=== PATIENT | male | born 1940 | race Caucasian/White ===

== ENCOUNTER 2017-11-13 02:49 | Day surgery (SDC) | payer OTHER ==
[~2017-11-13] VITALS: Ht 190.5 cm; Wt 120.0 kg
[~2017-11-13 02:49] MED LIST: ALBU90OI INH; AMIO200 PO; AMLO5 PO; ASPI325 PO; ASPI81EC; ASPI81EC PO; ATEN100; ATEN25 PO; ATOR10; Aldactone25 MG PO; Amiodarone HCl200 MG PO; Aspirin EC81 MG PO; BISA10S PR; CEFD300 PO; CEPH500 PO; CHOL10002 PO; CIPR500 PO; CLON.1 PO; CLOP75 PO; CO Q10 100 MG; CYAN1000 PO; CYANOCOBALAMIN 1000 MG; DIGO.25; DOCU100 PO; ESOM20 PO; EXTRA STRENGTH500 MG PO; FEXO180 PO; FISH1000; FURO20 PO; FURO40 PO; GLIM4 PO; GLUC500; GLYMET2.5; GLYMET5 PO; HYDACE5 PO; HYDACE5325 PO; HYDACE7.5 PO; HYDCHL25 PO; HYOS.125 SL; Heparin 5,5000 U/0.5 SC; INS70/30PN SC; IRBE150; IRBE150 PO; IRBE75 PO; ISOMON20 PO; L-THYROXINE PO; LASIX PO; LEVSOD100 PO; LEVSOD150 PO; LOPE2C PO; Lasix40 MG PO; METF500 PO; METO10 PO; METO25 PO; METO50 PO; NAPR500 PO; OXYC5; POLY17UD PO; POTA10T PO; POTCHL10ER PO; POTCIT10 PO; PROM25 PO; RANI150; RXHYD5325 PO; SIMV10 PO; SPIR25 PO; SULTRIDS PO; TAMS.4ER PO; TRAM50 PO; TRIHYD253A; TRIHYD253A PO; TRIHYD253B PO; VITAMIN B122500 MC1 PO; XARELTO20 MG PO
[2017-11-13] MEDS ORDERED: XARELTO20 MG PO (06:41)
== END 2017-11-13 08:20 | disposition home or self-care (01) ==
LOC: MHTC 02:49
PROC: 5A2204Z Restoration of Cardiac Rhythm, Single (ICD-10-PCS; principal; 2017-11-13)
PROC: B246ZZ4 Ultrasonography of Right and Left Heart, Transesophageal (ICD-10-PCS; principal; 2017-11-13)
DX: I48.1 Persistent atrial fibrillation (principal); I48.0 Paroxysmal atrial fibrillation; I11.0 Hypertensive heart disease with heart failure; E11.9 Type 2 diabetes mellitus without complications; E78.00 Pure hypercholesterolemia, unspecified; Z79.01 Long term (current) use of anticoagulants; I50.9 Heart failure, unspecified; E78.5 Hyperlipidemia, unspecified
CPT/HCPCS: 92960; 93005; 93010; 93312; 93325; 99152; 99153; J2250; J3010; J7040

== ENCOUNTER 2018-02-22 05:10 | Emergency (ER) | payer OTHER ==
[~2018-02-22] VITALS: Ht 193 cm; Wt 124.7 kg
[2018-02-22] MEDS ORDERED: Augmentin 875-1 EACH PO (06:46)
[2018-02-22] MEDS ORDERED: Norco 5-325 Ta1 EACH PO (06:46)
== END 2018-02-22 06:55 | disposition home or self-care (01) ==
LOC: ER 05:10
DX: J02.9 Acute pharyngitis, unspecified (principal); I11.0 Hypertensive heart disease with heart failure; I50.9 Heart failure, unspecified; E11.9 Type 2 diabetes mellitus without complications; I25.2 Old myocardial infarction; I48.91 Unspecified atrial fibrillation; Z88.5 Allergy status to narcotic agent; Z88.1 Allergy status to other antibiotic agents; Z79.899 Other long term (current) drug therapy; Z79.84 Long term (current) use of oral hypoglycemic drugs; Z79.82 Long term (current) use of aspirin; Z87.891 Personal history of nicotine dependence
CPT/HCPCS: 70360; 87081; 87430; 99283

== ENCOUNTER → 2018-06-08 | Outpatient (CLI) | payer OTHER ==
[~2018-06-08] MED LIST changes: +Augmentin 875-1 EACH PO; +Norco 5-325 Ta1 EACH PO
[2018-06-09 21:49] LABS: Protein, Urine Quantitative 19.9 mg/dL (0.0-11.9)
== END | disposition home or self-care (01) ==
LOC: LAB SHORT 08:30 → LAB 08:30
PROVIDERS: Internal Medicine Nephrology
DX: N18.3 Chronic kidney disease, stage 3 (moderate) (principal); D63.1 Anemia in chronic kidney disease; D75.1 Secondary polycythemia
CPT/HCPCS: 81050; 82043; 84156

== ENCOUNTER → 2018-06-30 | Outpatient (CLI) | payer OTHER | END | disposition home or self-care (01) | LOC: PLD 13:45 → LAB SHORT 13:45 | DX: D48.5 Neoplasm of uncertain behavior of skin (principal); D72.9 Disorder of white blood cells, unspecified | CPT/HCPCS: 88304 ==

== ENCOUNTER → 2018-10-29 | Outpatient (CLI) | payer OTHER | END | disposition home or self-care (01) | LOC: LAB SHORT 12:12 → PLD 12:12 | DX: L30.9 Dermatitis, unspecified (principal); L98.9 Disorder of the skin and subcutaneous tissue, unspecified | CPT/HCPCS: 88305; 88312 ==

== ENCOUNTER 2020-06-05 18:14 | Observation (INO) | payer OTHER ==
[~2020-06-05] VITALS: Ht 193 cm; Wt 122.4 kg
[~2020-06-05 18:14] MED LIST changes: -ISOMON20 PO; +ISOSORBIDE MONO30 MG PO
[2020-06-05 20:38] LABS: BASOPHILS ABSOLUTE AUTO 0.09 K/mm3 (0.00-0.23); BASOPHILS PERCENT AUTO 1 % (0-2); EOSINOPHILS ABSOLUTE AUTO 0.41 K/mm3 (0.00-0.68); EOSINOPHILS PERCENT AUTO 3 % (0-6); Hematocrit 47.4 % (37.0-53.0); Hemoglobin 15.8 g/dL (13.5-17.5); IMMATURE GRAN ABSOLUTE AUTO 0.07 K/mm3 (0.00-0.10); IMMATURE GRAN PERCENT AUTO 1 % (0-1); LYMPHOCYTES ABSOLUTE AUTO 1.84 K/mm3 (0.84-5.20); LYMPHOCYTES PERCENT AUTO 14 % (21-46); MONOCYTES ABSOLUTE AUTO 1.66 K/mm3 (0.16-1.47); MONOCYTES PERCENT AUTO 13 % (4-13); Mean Corpuscular HGB 30.4 pg (26.0-34.0); Mean Corpuscular HGB Conc 33.3 g/dL (31.5-36.5); Mean Corpuscular Volume 91 fL (80-100); Mean Platelet Volume 10.3 fL (9.1-12.4); NEUTROPHILS ABSOLUTE AUTO 8.92 K/mm3 (1.96-9.15); NEUTROPHILS PERCENT AUTO 69 % (41-73); Platelet Count 183 K/mm3 (150-400); RDW Coefficient Variation 12.3 % (11.7-14.2); RDW Standard Deviation 41.4 fL (35.1-46.3); White Blood Cell Count 12.99 K/mm3 (4.00-11.30)
[2020-06-05 20:54] LABS: International Normalized Ratio 1.03
[2020-06-05 20:59] LABS: Alanine Aminotransfer (ALT/SGP 22 U/L (12-78); Albumin, Blood 3.4 g/dL (3.4-5.0); Alk Phos 85 U/L (50-136); Anion Gap 9 mmol/L (6-16); Aspartate Aminotrans (AST/SGOT 18 U/L (12-37); Bilirubin, Total 0.6 mg/dL (0.1-1.0); Blood Urea Nitrogen 20 mg/dL (8-24); Bun/Creatinine Ratio 15.9 (12.0-20.0); CO2, Blood 27 mmol/L (21-32); Chloride, Blood 103 mmol/L (98-108); Creatinine, Blood 1.26 mg/dL (0.60-1.20); Globulin, Blood 3.5 g/dL (2.2-4.0); Glomerular Filtration Rate 59 (60-); Glucose, Blood 213 mg/dL (70-99); Potassium, Blood 3.5 mmol/L (3.5-5.5); Sodium, Blood 139 mmol/L (136-145); Total Protein, Blood 6.9 g/dL (6.4-8.2); Troponin I <0.015 ng/mL (0.000-0.040)
[2020-06-05] MEDS ORDERED: SITA100T2 PO (21:44)
[2020-06-05] MEDS ORDERED: BUME2 PO (21:50)
[2020-06-05] MEDS ORDERED: GABA100 PO (21:53)
[2020-06-05] MEDS ORDERED: ALLEGRA ALLERG180 MG PO (21:55)
[2020-06-05] MEDS ORDERED: Meribin5 MG PO (21:55)
[2020-06-05] MEDS ORDERED: SPIR25 PO (21:56)
[2020-06-05] MEDS ORDERED: PIOG30 PO (21:57)
[2020-06-05] MEDS ORDERED: Aspir 8181 MG PO (22:01)
--- NOTE | 2020-06-06 07:31 | NUR ---
head gauge unit operator summary pt a/o x4. currently bedrest. swelling and redness in RLE. pt denies pain in leg. he does have some tenderness. he is chronically sob at baseline. i did not notice any sob. lung sounds clear throughout. pt's ble are elevated to help decrease swelling. currently on heparin drip. pt educated on this. vss. report given to oncoming nurse.
--- NOTE | 2020-06-06 07:53 | NUR ---
DNR WRISTBAND PLACED AT 0753 ON 06/06/20. VERIFIED WITH SATISH JONES.
--- NOTE | 2020-06-06 18:49 | NUR ---
PATIENT IS ALERT AND ORIENTED. HE IS ON A HEPARIN DRIP. NO COMPLAINTS OF PAIN IN RIGHT LEG. AWAITING CONSULT WITH DR. WANG. PATIENT IS INDEPENDENT TO THE BATHROOM. HE HAS AGREED TO TAKE ELIQUIS AT HOME.
--- NOTE | 2020-06-07 06:29 | NUR ---
EQUIPMENT OPERATOR/LABORER/SUPERVISOR SUMMARY NO ACUTE CHAGNES THIS SHIFT. PT AAOX4 AND PLEASANT. STANDBY ASSIST TO BSC. DENIES PAIN IN RLE BUT DOES STILL HAVE SOME SWELLING AND REDNESS OF THE AREA. PER PT, AWAITING WORD FROM DR WANG OF THE PLAN MOVING FORWARD REGARDING HIS DVT'S. VSS, WILL CONTINUE TO MONITOR.
--- NOTE | 2020-06-07 17:16 | NUR ---
SHIFT SUMMARY PT A/O X4, PLEASANT, AND COOPERATIVE WITH CARE. SBA TO THE BA. REDNESS AND SWELLING IN R LEG, BUT PT DENIES PAIN. PT ON A HEPARIN DRIP. THROMBECTOMY SCHEDULED FOR TOMORROW MORNING. NPO AFTER MIDNIGHT. VSS, WILL CONTINUE TO MONITOR.
[2020-06-08 03:26] LABS: Bun/Creatinine Ratio 14.2 (12.0-20.0); Calcium, Blood 8.6 mg/dL (8.5-10.1); Creatinine, Blood 1.41 mg/dL (0.60-1.20); Potassium, Blood 3.7 mmol/L (3.5-5.5)
--- NOTE | 2020-06-08 03:46 | NUR ---
HEELER MACHINE SUMMARY Patient anxious about having thrombectomy today. No complaint of pain except dull ache when oob to bathroom. Patient asking questions about activity levels while recovering from surgery. PTT 57.4 at 0300. Per pharmacy, no change in dosing of heparin for now. Rate will remain at 44ml/hr until PTT redrawn at 080o.
--- NOTE | 2020-06-08 07:25 | NUR ---
PT TRANSPORTED TO THE [facility] BY WHEELCHAIR AT 0720 FOR PROCEDURE.
--- NOTE | 2020-06-08 09:00 | NUR ---
Patient arrived from [facility] at 0849, he was alert and oriented and able to communicate his needs. He is on RA and sats >90%. He has clear op site to back of knee from access point that is c/d/i and no current signs of bleeding or hematoma and + pedal pulse. He has distal edema 1-2. Called Dr Cheng and ok to eat and give am meds and talked with Dr Helton and stated the same and he would contact Dr Cheng for coagulation.
--- NOTE | 2020-06-08 09:06 | NUR ---
PT TRANSFERRED TO ICU 16. REPORT GIVEN TO MARIANNA ENG.
[2020-06-08] MEDS ORDERED: ELIQUIS5 MG PO (10:59)
--- NOTE | 2020-06-08 11:24 | NUR ---
Patient seen by Dr Cheng and discharge orders written. Meds called into [facility]. Patient was assisted by aid to get dressed. Dressing to back of right leg C/D/I. He was given written discharge orders and reviewed new med and side affects to watch out for to change med dose. Patient returned understanding and RAC IV pulled intact and was help to front of hospital by wheelchair and went home POV.
== END 2020-06-08 11:20 | disposition home or self-care (01) ==
LOC: ER 18:14 → MEDS 18:15 → ER 22:08 → MEDS 22:08 → ICUW 06-08 08:45
PROVIDERS: Emergency Medicine; Internal Medicine; ADMIT Hospitalist
DX: I82.411 Acute embolism and thrombosis of right femoral vein (principal); I82.431 Acute embolism and thrombosis of right popliteal vein; I82.441 Acute embolism and thrombosis of right tibial vein; I82.4Z1 Acute embolism and thrombosis of unspecified deep veins of right distal lower extremity; I87.2 Venous insufficiency (chronic) (peripheral); I25.10 Atherosclerotic heart disease of native coronary artery without angina pectoris; E78.5 Hyperlipidemia, unspecified; E11.22 Type 2 diabetes mellitus with diabetic chronic kidney disease; E11.40 Type 2 diabetes mellitus with diabetic neuropathy, unspecified; I12.9 Hypertensive chronic kidney disease with stage 1 through stage 4 chronic kidney disease, or unspecified chronic kidney disease; N18.3 Chronic kidney disease, stage 3 (moderate); I48.20 Chronic atrial fibrillation, unspecified; Z87.891 Personal history of nicotine dependence; Z20.828 Contact with and (suspected) exposure to other viral communicable diseases; Z88.5 Allergy status to narcotic agent; Z88.8 Allergy status to other drugs, medicaments and biological substances; Z79.82 Long term (current) use of aspirin; Z79.899 Other long term (current) drug therapy; Z79.84 Long term (current) use of oral hypoglycemic drugs
CPT/HCPCS: 36005; 36010; 36415; 37187; 71260; 75820; 76937; 80048; 80053; 82947; 83880; 84484; 85025; 85610; 85730; 93005; 93010; 93971; 99152; 99153; 99285-25; A9270; A9270-GY; C1757; C1769; C1887; C1894; G0378; J1644; J2250; J3010; J7030; Q9967; U0002

== ENCOUNTER 2020-06-13 11:23 | Emergency (ER) | payer OTHER ==
[~2020-06-13] VITALS: Ht 193 cm; Wt 120.2 kg
[~2020-06-13 11:23] MED LIST changes: +ALLEGRA ALLERG180 MG PO; +Aspir 8181 MG PO; +BUME2 PO; +ELIQUIS5 MG PO; +GABA100 PO; +Meribin5 MG PO; +PIOG30 PO; +SITA100T2 PO
[2020-06-13 12:15] LABS: BASOPHILS PERCENT AUTO 1 % (0-2); EOSINOPHILS ABSOLUTE AUTO 0.32 K/mm3 (0.00-0.68); EOSINOPHILS PERCENT AUTO 3 % (0-6); Hematocrit 47.8 % (37.0-53.0); IMMATURE GRAN ABSOLUTE AUTO 0.08 K/mm3 (0.00-0.10); IMMATURE GRAN PERCENT AUTO 1 % (0-1); LYMPHOCYTES ABSOLUTE AUTO 1.67 K/mm3 (0.84-5.20); LYMPHOCYTES PERCENT AUTO 15 % (21-46); MONOCYTES ABSOLUTE AUTO 1.11 K/mm3 (0.16-1.47); MONOCYTES PERCENT AUTO 10 % (4-13); Mean Corpuscular HGB 30.9 pg (26.0-34.0); Mean Corpuscular HGB Conc 33.5 g/dL (31.5-36.5); Mean Corpuscular Volume 93 fL (80-100); NEUTROPHILS ABSOLUTE AUTO 7.91 K/mm3 (1.96-9.15); NEUTROPHILS PERCENT AUTO 71 % (41-73); Platelet Count 286 K/mm3 (150-400); RDW Coefficient Variation 12.1 % (11.7-14.2); RDW Standard Deviation 41.3 fL (35.1-46.3); Red Blood Cell Count 5.17 M/mm3 (4.30-5.90); White Blood Cell Count 11.19 K/mm3 (4.00-11.30)
[2020-06-13 12:32] LABS: International Normalized Ratio 1.08; Prothrombin Time Results 11.5 Sec (9.7-11.5)
[2020-06-13 12:48] LABS: Albumin, Blood 3.5 g/dL (3.4-5.0); Albumin/Globulin Ratio 0.9 (0.8-1.8); Bilirubin, Total 0.7 mg/dL (0.1-1.0); Bun/Creatinine Ratio 18.1 (12.0-20.0); Calcium, Blood 9.7 mg/dL (8.5-10.1); Creatinine, Blood 1.44 mg/dL (0.60-1.20); Globulin, Blood 4.1 g/dL (2.2-4.0); Potassium, Blood 4.5 mmol/L (3.5-5.5); Total Protein, Blood 7.6 g/dL (6.4-8.2)
== END 2020-06-13 15:28 | disposition home or self-care (01) ==
LOC: ER 11:23
PROVIDERS: Physician Assistant
DX: I82.511 Chronic embolism and thrombosis of right femoral vein (principal); I48.91 Unspecified atrial fibrillation; E78.5 Hyperlipidemia, unspecified; E11.22 Type 2 diabetes mellitus with diabetic chronic kidney disease; N18.9 Chronic kidney disease, unspecified; I25.10 Atherosclerotic heart disease of native coronary artery without angina pectoris; I25.2 Old myocardial infarction; I12.9 Hypertensive chronic kidney disease with stage 1 through stage 4 chronic kidney disease, or unspecified chronic kidney disease; E11.40 Type 2 diabetes mellitus with diabetic neuropathy, unspecified; Z88.5 Allergy status to narcotic agent; Z88.8 Allergy status to other drugs, medicaments and biological substances; Z79.01 Long term (current) use of anticoagulants; Z79.84 Long term (current) use of oral hypoglycemic drugs; Z79.899 Other long term (current) drug therapy; Z79.82 Long term (current) use of aspirin; Z87.891 Personal history of nicotine dependence
CPT/HCPCS: 80053; 85025; 85610; 85730; 93971; 99285-25

== ENCOUNTER 2020-06-23 05:40 | Day surgery (SDC) | payer OTHER ==
[~2020-06-23] VITALS: Ht 193 cm; Wt 120.0 kg
--- NOTE | 2020-06-23 09:06 | NUR ---
PT VERBALIZED UNDERSTANDING OF WRITTEN AND VERBAL D/C INST. IV REMOVED. SR 60BPM ON D/C. PT TAKEN OUT OF THE [facility]RT CENTER VIA W/C.
== END 2020-06-23 22:38 | disposition home or self-care (01) ==
LOC: MHTC 05:40
DX: I48.0 Paroxysmal atrial fibrillation (principal); E78.00 Pure hypercholesterolemia, unspecified; E11.51 Type 2 diabetes mellitus with diabetic peripheral angiopathy without gangrene; I25.10 Atherosclerotic heart disease of native coronary artery without angina pectoris; Z87.891 Personal history of nicotine dependence; I11.0 Hypertensive heart disease with heart failure; I50.32 Chronic diastolic (congestive) heart failure; I87.2 Venous insufficiency (chronic) (peripheral); E78.5 Hyperlipidemia, unspecified; Z79.84 Long term (current) use of oral hypoglycemic drugs; Z79.82 Long term (current) use of aspirin; Z79.899 Other long term (current) drug therapy; Z79.01 Long term (current) use of anticoagulants; I44.0 Atrioventricular block, first degree; E03.9 Hypothyroidism, unspecified; R31.9 Hematuria, unspecified; I70.0 Atherosclerosis of aorta
CPT/HCPCS: 92960; 93005; 93010; 93312; 93325; 99152; J2250; J3010; J7030

== ENCOUNTER 2020-09-01 12:46 | Day surgery (SDC) | payer OTHER ==
[~2020-09-01] VITALS: Ht 193 cm; Wt 121.9 kg
[~2020-09-01 12:46] MED LIST changes: +ALDACTONE25 MG PO; +Actos30 MG PO; +Bumetanide2 MG PO; +ELIQUIS5 M2 PO; +EUTHYROX125 MCG PO; +FAMO20 PO; +FOLI1 PO; +GALZIN50 MG PO; +Isosorbide Mono30 MG PO; +Klor-Con 1010 MEQ PO; +MERIBIN5 M1 PO; +METO25ER PO
== END 2020-09-01 14:59 | disposition home or self-care (01) ==
LOC: ORSCSDS 12:46
PROVIDERS: Surgery
PROC: 0DBH8ZX Excision of Cecum, Via Natural or Artificial Opening Endoscopic, Diagnostic (ICD-10-PCS; principal; 2020-09-01 14:15)
DX: Z12.11 Encounter for screening for malignant neoplasm of colon (principal); D12.0 Benign neoplasm of cecum; K64.8 Other hemorrhoids; I10 Essential (primary) hypertension; I48.0 Paroxysmal atrial fibrillation; I25.10 Atherosclerotic heart disease of native coronary artery without angina pectoris; E11.40 Type 2 diabetes mellitus with diabetic neuropathy, unspecified; E78.5 Hyperlipidemia, unspecified; I25.2 Old myocardial infarction; Z79.01 Long term (current) use of anticoagulants; Z79.82 Long term (current) use of aspirin; Z79.84 Long term (current) use of oral hypoglycemic drugs; Z79.899 Other long term (current) drug therapy; Z87.891 Personal history of nicotine dependence
CPT/HCPCS: 82947; 88305; J2704; J7120

== ENCOUNTER → 2022-04-10 | Outpatient (CLI) | payer OTHER | END | disposition home or self-care (01) | LOC: PLD 14:42 → LAB SHORT 14:42 | DX: D23.39 Other benign neoplasm of skin of other parts of face (principal) | CPT/HCPCS: 88305 ==

== ENCOUNTER → 2022-11-22 | Outpatient (CLI) | payer OTHER | LOC: LAB SHORT 08:14 → PLD 08:14 | DX: C44.319 Basal cell carcinoma of skin of other parts of face (principal) | CPT/HCPCS: 88305 ==

== ENCOUNTER 2023-04-15 09:53 | Emergency (ER) | payer OTHER ==
[~2023-04-15] VITALS: Ht 193 cm; Wt 124.7 kg
[~2023-04-15 09:53] MED LIST changes: +Simvastatin10 MG PO
[2023-04-15 10:54] LABS: BASOPHILS ABSOLUTE AUTO 0.07 K/mm3 (0.00-0.23); BASOPHILS PERCENT AUTO 1 % (0-2); EOSINOPHILS ABSOLUTE AUTO 0.29 K/mm3 (0.00-0.68); EOSINOPHILS PERCENT AUTO 3 % (0-6); Hematocrit 50.3 % (37.0-53.0); Hemoglobin 16.3 g/dL (13.5-17.5); IMMATURE GRAN ABSOLUTE AUTO 0.04 K/mm3 (0.00-0.10); IMMATURE GRAN PERCENT AUTO 0 % (0-1); LYMPHOCYTES ABSOLUTE AUTO 1.19 K/mm3 (0.84-5.20); LYMPHOCYTES PERCENT AUTO 12 % (21-46); MONOCYTES ABSOLUTE AUTO 1.05 K/mm3 (0.16-1.47); MONOCYTES PERCENT AUTO 11 % (4-13); Mean Corpuscular HGB 29.5 pg (26.0-34.0); Mean Corpuscular HGB Conc 32.4 g/dL (31.5-36.5); Mean Corpuscular Volume 91 fL (80-100); Mean Platelet Volume 10.2 fL (9.1-12.4); NEUTROPHILS ABSOLUTE AUTO 7.12 K/mm3 (1.96-9.15); NEUTROPHILS PERCENT AUTO 73 % (41-73); Platelet Count 194 K/mm3 (150-400); RDW Coefficient Variation 13.2 % (11.7-14.2); RDW Standard Deviation 44.2 fL (35.1-46.3); Red Blood Cell Count 5.52 M/mm3 (4.30-5.90); White Blood Cell Count 9.76 K/mm3 (4.00-11.30)
[2023-04-15 11:11] LABS: Albumin, Blood 3.6 g/dL (3.4-5.0); Bilirubin, Total 0.6 mg/dL (0.1-1.0); Bun/Creatinine Ratio 16.1 (12.0-20.0); Calcium, Blood 9.1 mg/dL (8.5-10.1); Creatinine, Blood 1.37 mg/dL (0.60-1.20); Globulin, Blood 3.6 g/dL (2.2-4.0); Potassium, Blood 3.8 mmol/L (3.5-5.5); Total Protein, Blood 7.2 g/dL (6.4-8.2)
[2023-04-15 13:00] VITALS: BP 114/51
== END 2023-04-15 13:08 | disposition home or self-care (01) ==
LOC: ER 09:53
PROVIDERS: Emergency Medicine
DX: I48.91 Unspecified atrial fibrillation (principal); Z88.8 Allergy status to other drugs, medicaments and biological substances; Z88.5 Allergy status to narcotic agent; Z79.899 Other long term (current) drug therapy; Z79.84 Long term (current) use of oral hypoglycemic drugs; E11.22 Type 2 diabetes mellitus with diabetic chronic kidney disease; I12.9 Hypertensive chronic kidney disease with stage 1 through stage 4 chronic kidney disease, or unspecified chronic kidney disease; I25.10 Atherosclerotic heart disease of native coronary artery without angina pectoris; I25.2 Old myocardial infarction; E78.5 Hyperlipidemia, unspecified; N18.6 End stage renal disease
CPT/HCPCS: 71046; 80053; 84484; 85025; 92960; 93005; 93010; 99152; 99285-25

== ENCOUNTER 2023-06-11 12:19 | Emergency (ER) | payer OTHER ==
[~2023-06-11] VITALS: Ht 193 cm; Wt 122.5 kg
[2023-06-11 13:19] LABS: BASOPHILS ABSOLUTE AUTO 0.06 K/mm3 (0.00-0.23); BASOPHILS PERCENT AUTO 1 % (0-2); EOSINOPHILS ABSOLUTE AUTO 0.26 K/mm3 (0.00-0.68); EOSINOPHILS PERCENT AUTO 3 % (0-6); Hemoglobin 15.5 g/dL (13.5-17.5); IMMATURE GRAN ABSOLUTE AUTO 0.04 K/mm3 (0.00-0.10); IMMATURE GRAN PERCENT AUTO 0 % (0-1); LYMPHOCYTES ABSOLUTE AUTO 1.42 K/mm3 (0.84-5.20); LYMPHOCYTES PERCENT AUTO 16 % (21-46); MONOCYTES ABSOLUTE AUTO 1.05 K/mm3 (0.16-1.47); MONOCYTES PERCENT AUTO 12 % (4-13); Mean Corpuscular HGB Conc 33.7 g/dL (31.5-36.5); Mean Corpuscular Volume 89 fL (80-100); Mean Platelet Volume 10.4 fL (9.1-12.4); NEUTROPHILS ABSOLUTE AUTO 6.21 K/mm3 (1.96-9.15); NEUTROPHILS PERCENT AUTO 69 % (41-73); Platelet Count 211 K/mm3 (150-400); RDW Coefficient Variation 13.8 % (11.7-14.2); RDW Standard Deviation 44.7 fL (35.1-46.3); Red Blood Cell Count 5.16 M/mm3 (4.30-5.90); White Blood Cell Count 9.04 K/mm3 (4.00-11.30)
[2023-06-11 13:37] LABS: Albumin, Blood 3.4 g/dL (3.4-5.0); Bilirubin, Total 0.4 mg/dL (0.1-1.0); Bun/Creatinine Ratio 21.6 (12.0-20.0); Calcium, Blood 9.1 mg/dL (8.5-10.1); Creatinine, Blood 1.39 mg/dL (0.60-1.20); Globulin, Blood 3.4 g/dL (2.2-4.0); Potassium, Blood 4.9 mmol/L (3.5-5.5); Total Protein, Blood 6.8 g/dL (6.4-8.2)
[2023-06-11 18:04] LABS: International Normalized Ratio 1.04; Prothrombin Time Results 10.9 Sec (9.7-11.5)
[2023-06-11 19:31] VITALS: BP 135/65
== END 2023-06-11 19:31 | disposition home or self-care (01) ==
LOC: ER 12:19
PROVIDERS: Emergency Medicine; Student in an Organized Health Care Education/Training Program
DX: R10.31 Right lower quadrant pain (principal); Z88.5 Allergy status to narcotic agent; Z88.8 Allergy status to other drugs, medicaments and biological substances; Z79.899 Other long term (current) drug therapy; Z79.84 Long term (current) use of oral hypoglycemic drugs; I12.9 Hypertensive chronic kidney disease with stage 1 through stage 4 chronic kidney disease, or unspecified chronic kidney disease; I48.91 Unspecified atrial fibrillation; I25.10 Atherosclerotic heart disease of native coronary artery without angina pectoris; E11.40 Type 2 diabetes mellitus with diabetic neuropathy, unspecified; E78.5 Hyperlipidemia, unspecified; N18.9 Chronic kidney disease, unspecified; E11.22 Type 2 diabetes mellitus with diabetic chronic kidney disease; Z87.891 Personal history of nicotine dependence
CPT/HCPCS: 74177; 80053; 85025; 85610; 85730; 86850; 86900; 86901; 93005; 93010; 96374; 99284-25; A9270; C9113; Q9967

== ENCOUNTER 2023-06-16 10:13 | Emergency (ER) | payer OTHER ==
[~2023-06-16] VITALS: Ht 193 cm; Wt 122.5 kg
[2023-06-16 10:51] LABS: BASOPHILS ABSOLUTE AUTO 0.07 K/mm3 (0.00-0.23); BASOPHILS PERCENT AUTO 1 % (0-2); EOSINOPHILS ABSOLUTE AUTO 0.35 K/mm3 (0.00-0.68); EOSINOPHILS PERCENT AUTO 3 % (0-6); Hematocrit 47.1 % (37.0-53.0); Hemoglobin 15.6 g/dL (13.5-17.5); IMMATURE GRAN ABSOLUTE AUTO 0.05 K/mm3 (0.00-0.10); IMMATURE GRAN PERCENT AUTO 0 % (0-1); LYMPHOCYTES ABSOLUTE AUTO 1.64 K/mm3 (0.84-5.20); LYMPHOCYTES PERCENT AUTO 14 % (21-46); MONOCYTES ABSOLUTE AUTO 1.24 K/mm3 (0.16-1.47); MONOCYTES PERCENT AUTO 11 % (4-13); Mean Corpuscular HGB 29.3 pg (26.0-34.0); Mean Corpuscular HGB Conc 33.1 g/dL (31.5-36.5); Mean Corpuscular Volume 89 fL (80-100); NEUTROPHILS PERCENT AUTO 71 % (41-73); Platelet Count 214 K/mm3 (150-400); RDW Coefficient Variation 13.8 % (11.7-14.2); RDW Standard Deviation 44.2 fL (35.1-46.3); Red Blood Cell Count 5.32 M/mm3 (4.30-5.90); White Blood Cell Count 11.55 K/mm3 (4.00-11.30)
[2023-06-16 11:10] LABS: Albumin, Blood 3.3 g/dL (3.4-5.0); Bilirubin, Total 0.6 mg/dL (0.1-1.0); Bun/Creatinine Ratio 15.1 (12.0-20.0); Calcium, Blood 8.6 mg/dL (8.5-10.1); Creatinine, Blood 1.39 mg/dL (0.60-1.20); Globulin, Blood 3.4 g/dL (2.2-4.0); Total Protein, Blood 6.7 g/dL (6.4-8.2)
[2023-06-16 13:13] VITALS: BP 131/90
== END 2023-06-16 13:15 | disposition home or self-care (01) ==
LOC: ER 10:13
PROVIDERS: Emergency Medicine
DX: I48.91 Unspecified atrial fibrillation (principal); I25.10 Atherosclerotic heart disease of native coronary artery without angina pectoris; E78.5 Hyperlipidemia, unspecified; I25.2 Old myocardial infarction; E11.40 Type 2 diabetes mellitus with diabetic neuropathy, unspecified; I12.9 Hypertensive chronic kidney disease with stage 1 through stage 4 chronic kidney disease, or unspecified chronic kidney disease; E11.22 Type 2 diabetes mellitus with diabetic chronic kidney disease; N18.9 Chronic kidney disease, unspecified; Z88.5 Allergy status to narcotic agent; Z88.8 Allergy status to other drugs, medicaments and biological substances; Z79.01 Long term (current) use of anticoagulants; Z79.84 Long term (current) use of oral hypoglycemic drugs; Z79.899 Other long term (current) drug therapy; Z87.891 Personal history of nicotine dependence
CPT/HCPCS: 71045; 80053; 83880; 84484; 85025; 93005; 93010; 99285-25

== ENCOUNTER → 2023-07-14 | Outpatient (CLI) | payer OTHER ==
[2023-07-14 15:23] LABS: BASOPHILS ABSOLUTE AUTO 0.06 K/mm3 (0.00-0.23); BASOPHILS PERCENT AUTO 1 % (0-2); EOSINOPHILS ABSOLUTE AUTO 0.24 K/mm3 (0.00-0.68); EOSINOPHILS PERCENT AUTO 3 % (0-6); Hematocrit 49.2 % (37.0-53.0); Hemoglobin 16.3 g/dL (13.5-17.5); IMMATURE GRAN ABSOLUTE AUTO 0.03 K/mm3 (0.00-0.10); IMMATURE GRAN PERCENT AUTO 0 % (0-1); LYMPHOCYTES ABSOLUTE AUTO 1.08 K/mm3 (0.84-5.20); LYMPHOCYTES PERCENT AUTO 15 % (21-46); MONOCYTES ABSOLUTE AUTO 0.91 K/mm3 (0.16-1.47); MONOCYTES PERCENT AUTO 13 % (4-13); Mean Corpuscular HGB 29.4 pg (26.0-34.0); Mean Corpuscular HGB Conc 33.1 g/dL (31.5-36.5); Mean Corpuscular Volume 89 fL (80-100); Mean Platelet Volume 10.4 fL (9.1-12.4); NEUTROPHILS ABSOLUTE AUTO 4.95 K/mm3 (1.96-9.15); NEUTROPHILS PERCENT AUTO 68 % (41-73); Platelet Count 239 K/mm3 (150-400); RDW Coefficient Variation 14.5 % (11.7-14.2); RDW Standard Deviation 46.7 fL (35.1-46.3); Red Blood Cell Count 5.54 M/mm3 (4.30-5.90); White Blood Cell Count 7.27 K/mm3 (4.00-11.30)
[2023-07-14 15:42] LABS: Albumin, Blood 3.7 g/dL (3.4-5.0); Bilirubin, Total 0.6 mg/dL (0.1-1.0); Bun/Creatinine Ratio 12.6 (12.0-20.0); Calcium, Blood 9.2 mg/dL (8.5-10.1); Creatinine, Blood 1.35 mg/dL (0.60-1.20); Globulin, Blood 3.7 g/dL (2.2-4.0); Potassium, Blood 3.8 mmol/L (3.5-5.5); Thyroid Stimulating Hormone 1.03 uIU/mL (0.360-4.800); Total Protein, Blood 7.4 g/dL (6.4-8.2)
== END | disposition home or self-care (01) ==
LOC: LAB SHORT 14:05 → LAB 14:05
PROVIDERS: Physician Assistant
DX: E03.9 Hypothyroidism, unspecified (principal); I25.2 Old myocardial infarction; R53.83 Other fatigue; R31.9 Hematuria, unspecified
CPT/HCPCS: 80053; 83880; 84443; 84484; 85025; 87086

== ENCOUNTER 2023-08-28 13:11 | Emergency (ER) | payer OTHER ==
[~2023-08-28] VITALS: Ht 193 cm; Wt 127.0 kg
[2023-08-28 13:20] VITALS: BP 156/106
[2023-08-28] MEDS ORDERED: Voltaren100 GM TOP (15:19)
== END 2023-08-28 15:35 | disposition home or self-care (01) ==
LOC: ER 13:11
DX: M25.562 Pain in left knee (principal); Z88.6 Allergy status to analgesic agent; Z88.5 Allergy status to narcotic agent; Z88.8 Allergy status to other drugs, medicaments and biological substances; Z79.01 Long term (current) use of anticoagulants; Z79.84 Long term (current) use of oral hypoglycemic drugs; Z79.899 Other long term (current) drug therapy; Z79.890 Hormone replacement therapy; Z87.891 Personal history of nicotine dependence
CPT/HCPCS: 73562-LT; 93971; 99284-25

== ENCOUNTER 2024-04-11 08:50 | Emergency (ER) | payer OTHER ==
[~2024-04-11] VITALS: Ht 193 cm; Wt 122.5 kg
[~2024-04-11 08:50] MED LIST changes: +Voltaren100 GM TOP
[2024-04-11] MEDS ORDERED: NS 1,000 ML IV SCH (08:55)
[2024-04-11 09:19] LABS: BASOPHILS ABSOLUTE AUTO 0.11 K/mm3 (0.00-0.23); BASOPHILS PERCENT AUTO 1 % (0-2); EOSINOPHILS ABSOLUTE AUTO 0.36 K/mm3 (0.00-0.68); EOSINOPHILS PERCENT AUTO 3 % (0-6); Hematocrit 50.3 % (37.0-53.0); Hemoglobin 16.6 g/dL (13.5-17.5); IMMATURE GRAN ABSOLUTE AUTO 0.07 K/mm3 (0.00-0.10); IMMATURE GRAN PERCENT AUTO 1 % (0-1); LYMPHOCYTES ABSOLUTE AUTO 1.63 K/mm3 (0.84-5.20); LYMPHOCYTES PERCENT AUTO 16 % (21-46); MONOCYTES ABSOLUTE AUTO 1.09 K/mm3 (0.16-1.47); MONOCYTES PERCENT AUTO 10 % (4-13); Mean Corpuscular HGB 30.6 pg (26.0-34.0); Mean Corpuscular Volume 93 fL (80-100); Mean Platelet Volume 10.1 fL (9.1-12.4); NEUTROPHILS ABSOLUTE AUTO 7.29 K/mm3 (1.96-9.15); NEUTROPHILS PERCENT AUTO 69 % (41-73); Platelet Count 214 K/mm3 (150-400); RDW Coefficient Variation 13.2 % (11.7-14.2); RDW Standard Deviation 44.6 fL (35.1-46.3); Red Blood Cell Count 5.42 M/mm3 (4.30-5.90); White Blood Cell Count 10.55 K/mm3 (4.00-11.30)
[2024-04-11 09:34] LABS: Albumin, Blood 3.5 g/dL (3.4-5.0); Bilirubin, Total 0.6 mg/dL (0.1-1.0); Bun/Creatinine Ratio 19.4 (12.0-20.0); C-REACTIVE PROTEIN, EXT RANGE 1.1 mg/dL (0.000-0.300); Calcium, Blood 8.7 mg/dL (8.5-10.1); Creatinine, Blood 1.6 mg/dL (0.60-1.20); Globulin, Blood 3.5 g/dL (2.2-4.0); Potassium, Blood 4.4 mmol/L (3.5-5.5)
[2024-04-11 11:00] VITALS: BP 164/84
== END 2024-04-11 11:25 | disposition home or self-care (01) ==
LOC: ER 08:50
PROVIDERS: Emergency Medicine
DX: H34.231 Retinal artery branch occlusion, right eye (principal)
CPT/HCPCS: 70496; 70498; 80053; 85025; 85651; 86140; 93005; 93010; 96360-59; 99284-25; J7030; Q9967